=== PATIENT | male | born 1940 | race Caucasian/White ===

== ENCOUNTER 2018-02-10 14:02 | Emergency (ER) | payer MEDICARE ==
[2018-02-10 14:26] VITALS: BP 171/78
--- NOTE | 2018-02-10 15:06 | ED Physician Documentation ---
History of Present Illness - Stated complaint Stated Complaint: LEFT ANKLE SWELLING - Chief complaint Chief Complaint: Ext Problem - History obtained from History obtained from: Patient, Family - History of Present Illness Timing: How many weeks ago (1) Pain level max: 4 Pain level now: 3 Improved by: nothing Worsened by: nothing - Additonal information Additional information: Patient is a 77-year-old male who is visiting the area. He states that he fell approximately a week ago and "did the splits". Since that time he has noted bruising down the posterior aspect of the left leg extending down into the foot. He was at a conference today when another physician saw him and recommended an ultrasound for possible DVT. Review of Systems Throat: denies: Sore throat Cardiac: denies: Chest pain / pressure Respiratory: denies: Dyspnea, Cough Neurologic: denies: Focal weakness, Numbness PD PAST MEDICAL HISTORY - Past Medical History Past Medical History: Yes Cardiovascular: Hypertension, High cholesterol - Present Medications Home Medications: Ambulatory Orders Medication Instructions Recorded Confirmed Atorvastatin [Lipitor] 1 tab PO DAILY 02/10/18 02/10/18 Escitalopram [Lexapro] 1 tab PO DAILY 02/10/18 02/10/18 Losartan [Cozaar] 1 tab PO DAILY 02/10/18 02/10/18 - Allergies Allergies/Adverse Reactions: Allergies Allergy/AdvReac Type Severity Reaction Status Date / Time No Known Drug Allergies Allergy Verified 02/10/18 14:26 - Living Situation Living Situation: reports: With family Living Arrangement: reports: At home - Social History Does the pt smoke?: No Does the pt have substance abuse?: No PD ED PE NORMAL - Vitals Vital signs reviewed: Yes - General General: Alert and oriented X 3, No acute distress - HEENT HEENT: Moist mucous membranes - Derm Derm: Warm and dry - Extremities Extremities: Other (L leg - Ecchymosis and swelling to the posterior aspect of the left leg extending from the mid thigh down to the foot. Stops in the fascial plane. No calf tenderness. No circumferential swelling. No bony tenderness.) - Neuro Neuro: Alert and oriented X 3 Results - Vitals Vitals: Vital Signs - 24 hr 02/10/18 14:20 Temperature 36.9 C Heart Rate 71 Respiratory 18 Rate Blood Pressure 171/78 H O2 Saturation 95 Oxygen O2 Source Room air PD MEDICAL DECISION MAKING - ED course Complexity details: considered differential, d/w patient, d/w family ED course: Patient is a 69-year-old male who presents to the emergency department with ecchymosis of the left leg after a fall approximately a week ago. The bruising is consistent with a likely internal muscle tear and hematoma. No evidence of DVT clinically. We did discuss an ultrasound but will hold off at this point, attempt conservative treatment with compression and expect the bruising to resolve over the next week or 2. Patient and are comfortable with this plan. Patient and family counseled regarding signs and symptoms for which I believe and urgent re-evaluation would be necessary. Patient with good understanding of and agreement to plan and is comfortable going home at this time This document was made in part using voice recognition software. While efforts are made to proofread this document, sound alike and grammatical errors may occur. - Sepsis Event Vital Signs: Vital Signs - 24 hr 02/10/18 14:20 Temperature 36.9 C Heart Rate 71 Respiratory 18 Rate Blood Pressure 171/78 H O2 Saturation 95 Oxygen O2 Source Room air Departure - Departure Disposition: 01 Home, Self Care Clinical Impression: Ecchymosis Contusion Qualifiers: Encounter type: initial encounter Contusion area: lower leg Laterality: left Qualified Code(s): S80.12XA - Contusion of left lower leg, initial encounter Condition: Good Instructions: ED Contusion Lower Ext Follow-Up: your,doctor as needed [Other] Comments: You can use the Raúl bandage as needed for compression. You should wrap from your knee towards your hip. It should be compressive but not too restrictive. The bruising will likely take 2-3 weeks to fully resolve. Return if you worsen
== END 2018-02-10 15:31 | disposition home or self-care (01) ==
LOC: ED 14:02
DX: S80.12XA Contusion of left lower leg, initial encounter (principal); I10 Essential (primary) hypertension; W19.XXXA Unspecified fall, initial encounter
CPT/HCPCS: 99282